=== PATIENT | female | born 1960 | race Caucasian/White ===

== ENCOUNTER 2021-03-29 09:59 | Inpatient (IN) | payer OTHER ==
[~2021-03-29] VITALS: Ht 160 cm; Wt 86.0 kg
[2021-03-29 11:31] LABS: BASOPHIL 0.5 % (0-2); EOSINOPHIL 0.2 % (0-5); HCT 29.9 % (37.0-47.0); HGB 9.2 g/dl (12.5-16.0); LYMPHOCYTE 3.7 % (15-48); MCH 25.5 pg (25.0-31.0); MCHC 30.8 g/dL (32.0-36.0); MCV 82.8 fL (78.0-100.0); MONOCYTE 4.2 % (0-12); MPV 9.3 fL (6.0-9.5); NRBC 0; PLT 651 K/uL (150-400); RBC 3.61 M/uL (4.20-5.40); RDW 15.4 % (11.5-14.0); WBC 28.9 K/uL (4.0-10.5)
[2021-03-29 11:35] LABS: NEUTROPHIL 90.3 % (41-80)
[2021-03-29 11:58] LABS: ALBUMIN 2.5 g/dL (3.4-5.0); BILIRUBIN - TOTAL 0.3 mg/dL (0.2-1.0); BUN/CREAT RATIO (CALC) 16.1 RATIO; CREATININE 0.93 mg/dL (0.51-0.95); GLOBULIN (CALCULATION) 4.9 g/dL; POTASSIUM 4.8 mmol/L (3.5-5.1); TOTAL PROTEIN 7.4 g/dL (6.4-8.2)
[2021-03-29 12:57] LABS: C-REACTIVE PROTEIN 14.5 mg/dL (<=0.90); LACTIC ACID 3.6 mmol/L (0.4-1.9); MAGNESIUM 2.2 mg/dL (1.8-2.4)
[2021-03-29 13:18] LABS: INR 1.13 (0.9-1.2); PROTHROMBIN TIME 13.9 SECONDS (11.8-13.4); PTT 35.1 SECONDS (24.4-34.7)
--- NOTE | 2021-03-29 17:21 | NUR ---
LEFT MESSAGE AT OFFICE FOR DR SUAZO CONSULT. TALKED WITH DR HO ABOUT CONSULT
[2021-03-30 06:34] LABS: HCT 24.2 % (37.0-47.0); HGB 7.3 g/dl (12.5-16.0); MCH 25.4 pg (25.0-31.0); MCHC 30.2 g/dL (32.0-36.0); MCV 84.3 fL (78.0-100.0); MPV 9.6 fL (6.0-9.5); RBC 2.87 M/uL (4.20-5.40); RDW 15.7 % (11.5-14.0); WBC 18.4 K/uL (4.0-10.5)
[2021-03-30 06:50] LABS: CREATININE 0.93 mg/dL (0.51-0.95); POTASSIUM 4.5 mmol/L (3.5-5.1)
[2021-03-30 10:08] LABS: BASOPHIL 0.6 % (0-2); EOSINOPHIL 0.8 % (0-5); HCT 25.4 % (37.0-47.0); HGB 7.7 g/dl (12.5-16.0); LYMPHOCYTE 4.3 % (15-48); MCH 25.8 pg (25.0-31.0); MCHC 30.3 g/dL (32.0-36.0); MCV 84.9 fL (78.0-100.0); MPV 9.3 fL (6.0-9.5); NEUTROPHIL 87.3 % (41-80); NRBC 0; PLT 489 K/uL (150-400); RBC 2.99 M/uL (4.20-5.40); RDW 15.8 % (11.5-14.0); WBC 20.1 K/uL (4.0-10.5)
[2021-03-30 10:26] LABS: BILIRUBIN NEGATIVE (NEGATIVE); BLOOD NEGATIVE Ery/uL (NEGATIVE); CLARITY TURBID (CLEAR); COLOR YELLOW (YELLOW); GLUCOSE (U) NORMAL (NORMAL); LEUKOCYTES TRACE Leu/uL (NEGATIVE); NITRITE NEGATIVE (NEGATIVE); PROTEIN NEGATIVE (NEGATIVE); SPECIFIC GRAVITY >=1.030 (1.001-1.030); UROBILINOGEN 0.2 mg/dL (0.2-1.0); pH 5.5 (5.0-9.0)
[2021-03-30 10:30] LABS: AMORPHOUS URATES CRYSTALS LARGE; BACTERIA TRACE
[2021-03-30 10:30] LABS: INR 1.16 (0.9-1.2); PROTHROMBIN TIME 14.2 SECONDS (11.8-13.4)
[2021-03-30 10:31] LABS: PTT 36.7 SECONDS (24.4-34.7)
[2021-03-30 10:33] LABS: IRON % SATURATION 7.7 %SAT (20-50)
[2021-03-30 11:01] LABS: ALBUMIN 2.1 g/dL (3.4-5.0); BILIRUBIN - TOTAL 0.2 mg/dL (0.2-1.0); BUN/CREAT RATIO (CALC) 13.4 RATIO; CREATININE 0.97 mg/dL (0.51-0.95); FOLIC ACID (SERUM) 3.5 ng/mL (8.6-58.9); GLOBULIN (CALCULATION) 4.4 g/dL; MAGNESIUM 2.2 mg/dL (1.8-2.4); POTASSIUM 4.9 mmol/L (3.5-5.1); TOTAL PROTEIN 6.5 g/dL (6.4-8.2)
--- NOTE | 2021-03-30 17:12 | NUR ---
03/30/21 Ms. Cote has a new dx of breast cancer. SHe will be following up with Dr. Laurent. - Ms. Cote lives with her brother, Shailesh Cote. Ms. Cote does not have children. - She was independent in the home and community prior to admission. Ms. Cote does not drive nor is she employed. She reports her basic needs to be afforded by her brother. Ms. Cote worked at a [employer] briefly years ago. - The [employer] her enrolled her in [facility] insurance. Ms. Cote will follow up with Dr. Laurent.
[2021-03-31 06:36] LABS: BASOPHIL 0.6 % (0-2); EOSINOPHIL 1.2 % (0-5); HCT 23.6 % (37.0-47.0); HGB 7.1 g/dl (12.5-16.0); LYMPHOCYTE 5.3 % (15-48); MCH 25.6 pg (25.0-31.0); MCHC 30.1 g/dL (32.0-36.0); MCV 85.2 fL (78.0-100.0); MONOCYTE 6.2 % (0-12); MPV 9.5 fL (6.0-9.5); NEUTROPHIL 85.8 % (41-80); NRBC 0; PLT 459 K/uL (150-400); RBC 2.77 M/uL (4.20-5.40); RDW 15.6 % (11.5-14.0); WBC 18.6 K/uL (4.0-10.5)
[2021-03-31 06:59] LABS: BUN/CREAT RATIO (CALC) 12.1 RATIO; CREATININE 0.99 mg/dL (0.51-0.95); POTASSIUM 4.1 mmol/L (3.5-5.1)
[2021-04-02] MEDS ORDERED: LEVAQUIN750 MG PO (13:43)
[2021-04-02 14:08] LABS: IMMUNOGLOBULIN A, QN, SERUM 335 mg/dL (87-352); IMMUNOGLOBULIN G, QN, SERUM 985 mg/dL (586-1602); IMMUNOGLOBULIN M, QN, SERUM 75 mg/dL (26-217)
[2021-04-02] MEDS ORDERED: OXYCONTIN 10MG10 MG PO (14:49)
--- NOTE | 2021-04-02 16:30 | NUR ---
04/02/21 A voucher for prescriptions was provided for [facility] in the event that the [facility] policy # was not yet effective.
== END 2021-04-02 18:16 | disposition home or self-care (01) | DRG 579 ==
LOC: FER 09:59 → FMS 14:28 → FER 15:59 → FMS 03-30 10:25
PROVIDERS: Allergy & Immunology Allergy; Emergency Medicine; Internal Medicine Hematology & Oncology; ADMIT Hospitalist
PROC: 07B53ZX Excision of Right Axillary Lymphatic, Percutaneous Approach, Diagnostic (ICD-10-PCS; principal; 2021-03-27)
PROC: 02H633Z Insertion of Infusion Device into Right Atrium, Percutaneous Approach (ICD-10-PCS; 2021-04-02)
PROC: B518ZZA Fluoroscopy of Superior Vena Cava, Guidance (ICD-10-PCS; 2021-04-02)
PROC: 0JH63WZ Insertion of Totally Implantable Vascular Access Device into Chest Subcutaneous Tissue and Fascia, Percutaneous Approach (ICD-10-PCS; 2021-04-02)
DX: C50.911 Malignant neoplasm of unspecified site of right female breast (principal); A41.50 Gram-negative sepsis, unspecified; E87.2 Acidosis; C77.3 Secondary and unspecified malignant neoplasm of axilla and upper limb lymph nodes; C77.1 Secondary and unspecified malignant neoplasm of intrathoracic lymph nodes; I96 Gangrene, not elsewhere classified; Z20.822 Contact with and (suspected) exposure to COVID-19; G89.3 Neoplasm related pain (acute) (chronic); D50.9 Iron deficiency anemia, unspecified; Z80.0 Family history of malignant neoplasm of digestive organs; Z87.891 Personal history of nicotine dependence; Z83.3 Family history of diabetes mellitus; Z82.49 Family history of ischemic heart disease and other diseases of the circulatory system
CPT/HCPCS: 36415; 70551; 71045; 71260; 76000; 80048; 80053; 80202; 81001; 82607; 82668; 82728; 82746; 83010; 83520; 83540; 83550; 83605; 83615; 83735; 84145; 84439; 85025; 85384; 85610; 85730; 86140; 86300; 86334; 86880; 87040; 87077; 87186; C1788; J1100; J1170; J1644; J1650; J1956; J2001; J2250; J2405; J2543; J2704; J3010; J3370; J7050; J7120; Q0138; Q9967; U0002

== ENCOUNTER 2021-05-15 16:26 | Inpatient (IN) | payer OTHER ==
[~2021-05-15] VITALS: Ht 160 cm; Wt 90.8 kg
[~2021-05-15 16:26] MED LIST: LEVAQUIN750 MG PO; OXYCONTIN 10MG10 MG PO
[2021-05-15 17:43] LABS: BASOPHIL 0 % (0-2); EOSINOPHIL 0 % (0-5); HCT 23.9 % (37.0-47.0); HGB 7.3 g/dl (12.5-16.0); MCH 26.7 pg (25.0-31.0); MCHC 30.5 g/dL (32.0-36.0); MCV 87.5 fL (78.0-100.0); MONOCYTE 0 % (0-12); MPV 11.1 fL (6.0-9.5); NRBC 0; RBC 2.73 M/uL (4.20-5.40); RDW 16.2 % (11.5-14.0)
[2021-05-15 17:48] LABS: PLT 38 K/uL (150-400)
[2021-05-15 18:03] LABS: ALBUMIN 1.6 g/dL (3.4-5.0); BILIRUBIN - TOTAL 0.7 mg/dL (0.2-1.0); BUN/CREAT RATIO (CALC) 29.6 RATIO; CREATININE 0.81 mg/dL (0.51-0.95); GLOBULIN (CALCULATION) 3.6 g/dL; POTASSIUM 3.7 mmol/L (3.5-5.1); TOTAL PROTEIN 5.2 g/dL (6.4-8.2)
[2021-05-15 18:15] LABS: LACTIC ACID 1.4 mmol/L (0.4-1.9)
[2021-05-16 01:26] LABS: BASOPHIL 0 % (0-2); EOSINOPHIL 0 % (0-5); HCT 24.1 % (37.0-47.0); HGB 7.6 g/dl (12.5-16.0); MCH 26.8 pg (25.0-31.0); MCHC 31.5 g/dL (32.0-36.0); MCV 84.9 fL (78.0-100.0); MONOCYTE 0 % (0-12); MPV 12.7 fL (6.0-9.5); NRBC 0; RBC 2.84 M/uL (4.20-5.40); RDW 15.5 % (11.5-14.0)
[2021-05-16 01:38] LABS: INR 1.55 (0.9-1.2); PROTHROMBIN TIME 17.8 SECONDS (11.8-13.4); PTT 48.5 SECONDS (24.4-34.7)
[2021-05-16 02:09] LABS: FLU B NEGATIVE B (NEGATIVE B)
[2021-05-16 02:09] LABS: PLT 31 K/uL (150-400)
[2021-05-16 04:43] LABS: BILIRUBIN NEGATIVE (NEGATIVE); BLOOD 2+ Ery/uL (NEGATIVE); COLOR YELLOW (YELLOW); GLUCOSE (U) NORMAL (NORMAL); LEUKOCYTES NEGATIVE Leu/uL (NEGATIVE); NITRITE NEGATIVE (NEGATIVE); PROTEIN 1+ mg/dL (NEGATIVE); SPECIFIC GRAVITY 1.025 (1.001-1.030); UROBILINOGEN 0.2 mg/dL (0.2-1.0); pH 5.5 (5.0-9.0)
[2021-05-16 04:45] LABS: CLARITY HAZY (CLEAR)
[2021-05-16 04:47] LABS: URINARY WBC RARE
[2021-05-16 04:48] LABS: AMORPHOUS URATES CRYSTALS MODERATE; BACTERIA TRACE; RENAL EPITHELIAL CELLS RARE; TRANSITIONAL EPITHELIAL CELLS RARE
[2021-05-16 05:29] LABS: BASOPHIL 0 % (0-2); EOSINOPHIL 0 % (0-5); HCT 24.1 % (37.0-47.0); HGB 7.6 g/dl (12.5-16.0); LYMPHOCYTE 0 % (15-48); MCH 26.7 pg (25.0-31.0); MCHC 31.5 g/dL (32.0-36.0); MCV 84.6 fL (78.0-100.0); MONOCYTE 0 % (0-12); MPV 12.8 fL (6.0-9.5); NRBC 0; RBC 2.85 M/uL (4.20-5.40); RDW 15.4 % (11.5-14.0)
[2021-05-16 05:55] LABS: PLT 27 K/uL (150-400)
[2021-05-16 06:07] LABS: CREATININE 0.69 mg/dL (0.51-0.95)
[2021-05-16] MEDS ORDERED: CLARITIN10 MG PO (07:38)
[2021-05-16] MEDS ORDERED: FOLIC ACID1 MG PO (07:39)
[2021-05-17 05:26] LABS: BASOPHIL 0 % (0-2); EOSINOPHIL 0 % (0-5); HCT 22.1 % (37.0-47.0); HGB 7.1 g/dl (12.5-16.0); LYMPHOCYTE 16.7 % (15-48); MCH 26.8 pg (25.0-31.0); MCHC 32.1 g/dL (32.0-36.0); MCV 83.4 fL (78.0-100.0); MONOCYTE 0 % (0-12); NEUTROPHIL 83.3 % (41-80); NRBC 0; RBC 2.65 M/uL (4.20-5.40); RDW 15.5 % (11.5-14.0)
[2021-05-17 06:00] LABS: BUN/CREAT RATIO (CALC) 27.4 RATIO; CREATININE 0.62 mg/dL (0.51-0.95); VANCOMYCIN, TROUGH 12.1 ug/mL (10-20)
[2021-05-17 07:42] LABS: PLT 8 K/uL (150-400); WBC 0.1 K/uL (4.0-10.5)
[2021-05-18 05:30] LABS: BASOPHIL 0 % (0-2); EOSINOPHIL 0 % (0-5); HCT 23.9 % (37.0-47.0); HGB 7.4 g/dl (12.5-16.0); LYMPHOCYTE 4.5 % (15-48); MCV 83.9 fL (78.0-100.0); MONOCYTE 9.1 % (0-12); NEUTROPHIL 54.6 % (41-80); NRBC 0; RBC 2.85 M/uL (4.20-5.40); RDW 15.6 % (11.5-14.0)
[2021-05-18 05:55] LABS: BUN/CREAT RATIO (CALC) 39.7 RATIO; CREATININE 0.63 mg/dL (0.51-0.95); PLT 10 K/uL (150-400); POTASSIUM 3.5 mmol/L (3.5-5.1); WBC 0.2 K/uL (4.0-10.5)
--- NOTE | 2021-05-18 06:35 | NUR ---
0447 PT HAS BEEN ON LEVOPHED DRIP TLERATING TITRATION WELL. AT THIS TIME LEVO HAS BEEN TURNED TO STANDBY 0638 LEVO DRIP STILL ON STANDBY PT BP IS 115/64 WITH A MAP OF 77.
--- NOTE | 2021-05-18 18:25 | NUR ---
PT IN BED RESTING WITH EYES CLOSED HEART RATE INCREASED UP TO 218 BEATS PER MINUTE, MD HALLMAN NOTIFIED 2.5 MG OF IVP LOPRESSOR GIVEN PT HEART RATE RETURNED TO 120'S SINCE HEART RATE STILL IN IN 120'S PLATELETTES HELD FOR 15 MINUTES FOR 250ML LR BOLUS
[2021-05-18 21:45] LABS: HCT 30.1 % (37.0-47.0); HGB 9.8 g/dL (12.5-16.0)
[2021-05-19 04:15] LABS: BASOPHIL 1.1 % (0-2); EOSINOPHIL 0 % (0-5); HCT 31.7 % (37.0-47.0); LYMPHOCYTE 2.1 % (15-48); MCH 26.8 pg (25.0-31.0); MCHC 32.5 g/dL (32.0-36.0); MCV 82.6 fL (78.0-100.0); MONOCYTE 5.3 % (0-12); NEUTROPHIL 85.1 % (41-80); NRBC 0; RBC 3.84 M/uL (4.20-5.40); RDW 16.3 % (11.5-14.0)
[2021-05-19 04:22] LABS: HGB 10.3 g/dl (12.5-16.0)
[2021-05-19 04:24] LABS: PLT 7 K/uL (150-400); WBC 0.9 K/uL (4.0-10.5)
[2021-05-19 04:28] LABS: ALBUMIN 1.3 g/dL (3.4-5.0); BUN/CREAT RATIO (CALC) 50.7 RATIO; CREATININE 0.67 mg/dL (0.51-0.95); MAGNESIUM 1.7 mg/dL (1.8-2.4); POTASSIUM 3.5 mmol/L (3.5-5.1)
[2021-05-20 05:08] LABS: HGB 8.6 g/dl (12.5-16.0); MCH 26.7 pg (25.0-31.0); MCHC 31.9 g/dL (32.0-36.0); MCV 83.9 fL (78.0-100.0); RBC 3.22 M/uL (4.20-5.40); RDW 16.4 % (11.5-14.0)
[2021-05-20 05:14] LABS: PLT 5 K/uL (150-400); WBC 1.3 K/uL (4.0-10.5)
[2021-05-20 05:30] LABS: BUN/CREAT RATIO (CALC) 59.6 RATIO; CREATININE 0.57 mg/dL (0.51-0.95); POTASSIUM 3.2 mmol/L (3.5-5.1)
[2021-05-21 05:14] LABS: BASOPHIL 0.8 % (0-2); EOSINOPHIL 0 % (0-5); HCT 24.3 % (37.0-47.0); HGB 7.5 g/dl (12.5-16.0); LYMPHOCYTE 1.6 % (15-48); MCHC 30.9 g/dL (32.0-36.0); MCV 84.4 fL (78.0-100.0); MONOCYTE 3.2 % (0-12); NEUTROPHIL 90.4 % (41-80); NRBC 0; RBC 2.88 M/uL (4.20-5.40); RDW 16.5 % (11.5-14.0)
[2021-05-21 05:15] LABS: WBC 2.5 K/uL (4.0-10.5)
[2021-05-21 05:23] LABS: PLT 5 K/uL (150-400)
[2021-05-21 05:29] LABS: BUN/CREAT RATIO (CALC) 59.1 RATIO; CREATININE 0.44 mg/dL (0.51-0.95); POTASSIUM 3.1 mmol/L (3.5-5.1)
[2021-05-22 07:06] LABS: BASOPHIL 0.2 % (0-2); EOSINOPHIL 0.1 % (0-5); HCT 34.9 % (37.0-47.0); LYMPHOCYTE 0.6 % (15-48); MCHC 31.2 g/dL (32.0-36.0); MCV 86.4 fL (78.0-100.0); MONOCYTE 4.9 % (0-12); MPV 12.4 fL (6.0-9.5); NEUTROPHIL 85.1 % (41-80); NRBC 0; RBC 4.04 M/uL (4.20-5.40); RETICULOCYTE COUNT 0.3 % (1.0-2.0)
[2021-05-22 07:09] LABS: HGB 10.9 g/dl (12.5-16.0); PLT 39 K/uL (150-400); WBC 8.4 K/uL (4.0-10.5)
[2021-05-22 07:34] LABS: IRON % SATURATION 8.1 %SAT (20-50)
[2021-05-22 08:31] LABS: ALBUMIN 2.6 g/dL (3.4-5.0); BILIRUBIN - TOTAL 1.4 mg/dL (0.2-1.0); BUN/CREAT RATIO (CALC) 47.7 RATIO; C-REACTIVE PROTEIN 17.7 mg/dL (<=0.90); CREATININE 0.44 mg/dL (0.51-0.95); FOLIC ACID (SERUM) 18.5 ng/mL (8.6-58.9); GLOBULIN (CALCULATION) 2.5 g/dL; MAGNESIUM 2.1 mg/dL (1.8-2.4); PHOSPHORUS 1.5 mg/dL (2.6-4.7); POTASSIUM 3.3 mmol/L (3.5-5.1); TOTAL PROTEIN 5.1 g/dL (6.4-8.2)
[2021-05-23 05:51] LABS: BASOPHIL 0.2 % (0-2); EOSINOPHIL 0 % (0-5); HCT 35.6 % (37.0-47.0); HGB 11.2 g/dl (12.5-16.0); LYMPHOCYTE 0.7 % (15-48); MCH 27.1 pg (25.0-31.0); MCHC 31.5 g/dL (32.0-36.0); MONOCYTE 5.2 % (0-12); NEUTROPHIL 84.3 % (41-80); NRBC 0; PLT 42 K/uL (150-400); RBC 4.14 M/uL (4.20-5.40); RDW 17.3 % (11.5-14.0); WBC 10.3 K/uL (4.0-10.5)
[2021-05-23 06:10] LABS: CREATININE 0.47 mg/dL (0.51-0.95); GLOBULIN (CALCULATION) 2.6 g/dL; PHOSPHORUS 1.3 mg/dL (2.6-4.7); POTASSIUM 3.3 mmol/L (3.5-5.1); TOTAL PROTEIN 4.6 g/dL (6.4-8.2)
[2021-05-23 06:26] LABS: NEUTROPHILS(M) 77 % (41-80)
[2021-05-23 06:27] LABS: LYMPHOCYTE(M) 6 % (15-48)
[2021-05-23 06:28] LABS: BAND 11 % (0-10); METAMYELOCYTE 4; MONOCYTE(M) 2 % (0-12); PLATELET ESTIMATE DECREASED; PLATELET MORPHOLOGY NORMAL
[2021-05-24 08:43] LABS: BASOPHIL 0.7 % (0-2); EOSINOPHIL 0 % (0-5); HCT 34.6 % (37.0-47.0); HGB 10.8 g/dl (12.5-16.0); LYMPHOCYTE 0.8 % (15-48); MCH 26.5 pg (25.0-31.0); MCHC 31.2 g/dL (32.0-36.0); MONOCYTE 4.9 % (0-12); MPV 13.5 fL (6.0-9.5); NEUTROPHIL 85.5 % (41-80); NRBC 0; PLT 80 K/uL (150-400); RBC 4.07 M/uL (4.20-5.40)
[2021-05-24 09:06] LABS: WBC 11.6 K/uL (4.0-10.5)
[2021-05-24 09:36] LABS: BILIRUBIN - TOTAL 0.8 mg/dL (0.2-1.0); CREATININE 0.4 mg/dL (0.51-0.95); GLOBULIN (CALCULATION) 2.4 g/dL; MAGNESIUM 1.6 mg/dL (1.8-2.4); PHOSPHORUS 2.5 mg/dL (2.6-4.7); TOTAL PROTEIN 4.4 g/dL (6.4-8.2)
[2021-05-24 09:43] LABS: POTASSIUM 3.3 mmol/L (3.5-5.1)
--- NOTE | 2021-05-24 16:47 | NUR ---
05/24 Ms. Cote lives at home with her brother. She is does not use DME. [facility] ME[facility] was notified via [facility] of admission. - Please notify MELECIO LEAVITT, [phone], at discharge and monitor for home 02 needs.
--- NOTE | 2021-05-25 06:40 | NUR ---
PT. PALMER HAS LEAKED ALL NIGHT. PT HAD ABOUT 6 UNMEASURABLE URINES WITH THE PALMER IN PLACE (16f). THE PALMER WAS REPLACED WITH A 18F AT 0630. WILL MONITOR TO SEE IF LEAKAGE STILL OCCURS. ER,RN
[2021-05-25 07:04] LABS: INR 1.61 (0.9-1.2); PROTHROMBIN TIME 18.4 SECONDS (11.8-13.4)
[2021-05-25 07:05] LABS: PTT 49.6 SECONDS (24.4-34.7)
[2021-05-25 07:53] LABS: BUN/CREAT RATIO (CALC) 24.5 RATIO; CREATININE 0.53 mg/dL (0.51-0.95); PHOSPHORUS 2.9 mg/dL (2.6-4.7); POTASSIUM 3.8 mmol/L (3.5-5.1)
[2021-05-25 07:58] LABS: MAGNESIUM 2.2 mg/dL (1.8-2.4)
[2021-05-26 04:44] LABS: BASOPHIL 0.3 % (0-2); EOSINOPHIL 0 % (0-5); HCT 29.2 % (37.0-47.0); HGB 9.1 g/dl (12.5-16.0); LYMPHOCYTE 0.7 % (15-48); MCH 27.2 pg (25.0-31.0); MCHC 31.2 g/dL (32.0-36.0); MCV 87.4 fL (78.0-100.0); MONOCYTE 5.3 % (0-12); MPV 13.4 fL (6.0-9.5); NRBC 0; PLT 115 K/uL (150-400); RBC 3.34 M/uL (4.20-5.40); WBC 11.9 K/uL (4.0-10.5)
[2021-05-26 04:50] LABS: BUN/CREAT RATIO (CALC) 24.2 RATIO; CREATININE 0.62 mg/dL (0.51-0.95)
[2021-05-26 04:51] LABS: NEUTROPHIL 86.6 % (41-80)
[2021-05-27 05:54] LABS: BASOPHIL 0.5 % (0-2); EOSINOPHIL 0 % (0-5); HCT 29.7 % (37.0-47.0); HGB 9.1 g/dl (12.5-16.0); LYMPHOCYTE 0.6 % (15-48); MCH 26.7 pg (25.0-31.0); MCHC 30.6 g/dL (32.0-36.0); MCV 87.1 fL (78.0-100.0); MONOCYTE 5.5 % (0-12); NRBC 0; PLT 136 K/uL (150-400); RBC 3.41 M/uL (4.20-5.40); RDW 16.9 % (11.5-14.0)
[2021-05-27 05:58] LABS: WBC 13.3 K/uL (4.0-10.5)
[2021-05-27 06:11] LABS: BUN/CREAT RATIO (CALC) 23.3 RATIO; CREATININE 0.6 mg/dL (0.51-0.95); MAGNESIUM 1.9 mg/dL (1.8-2.4); PHOSPHORUS 2.9 mg/dL (2.6-4.7); POTASSIUM 2.7 mmol/L (3.5-5.1)
[2021-05-28 07:13] LABS: BASOPHIL 0.5 % (0-2); EOSINOPHIL 0 % (0-5); HCT 30.8 % (37.0-47.0); HGB 9.5 g/dl (12.5-16.0); LYMPHOCYTE 0.7 % (15-48); MCHC 30.8 g/dL (32.0-36.0); MCV 87.5 fL (78.0-100.0); MONOCYTE 6.4 % (0-12); MPV 12.4 fL (6.0-9.5); NEUTROPHIL 87.8 % (41-80); NRBC 0; PLT 172 K/uL (150-400); RBC 3.52 M/uL (4.20-5.40); RDW 16.7 % (11.5-14.0); WBC 13.3 K/uL (4.0-10.5)
[2021-05-28 07:34] LABS: BUN/CREAT RATIO (CALC) 18.3 RATIO; CREATININE 0.71 mg/dL (0.51-0.95); MAGNESIUM 1.9 mg/dL (1.8-2.4); POTASSIUM 3.1 mmol/L (3.5-5.1)
--- NOTE | 2021-05-29 01:47 | NUR ---
THERE HAS BEEN A COMUNICATION ISSUE WITH THIS PATIENTS BREAST DRESSING. IT WAS GIVEN IN REPORT ON 05/27/2021 THAT DRESSING WAS NOT SUPPOSED TO BE CHANGED PER . ANJU PULIDO BROUGHT TO ATTENTION THAT WOUND CARE ORDER WAS IN AND NEEDED TO BE COMPLETE. BREAST WOUND ON LEFT CHEST INSPECTED. FOLLOW UP WITH DR. SUAZO IN AM IS NEEDED BEOFRE NURSE CHANGES WOUND DRESSING DUE TO SEVERITY.
[2021-05-29 06:07] LABS: HCT 28.1 % (37.0-47.0); HGB 8.7 g/dl (12.5-16.0); MCH 26.9 pg (25.0-31.0); MCV 86.7 fL (78.0-100.0); MPV 11.9 fL (6.0-9.5); RBC 3.24 M/uL (4.20-5.40); RDW 16.6 % (11.5-14.0); WBC 13.8 K/uL (4.0-10.5)
[2021-05-29 06:48] LABS: CREATININE 0.6 mg/dL (0.51-0.95); POTASSIUM 2.9 mmol/L (3.5-5.1)
--- NOTE | 2021-05-29 14:01 | NUR ---
05/29/21 Ms. Cote would like to be admitted to halfway prior to returning home. Referrals have been submitted to her facilities of choice; [facility], and [facility] and [facility].
--- NOTE | 2021-05-30 16:21 | NUR ---
05/30/21 [facility] has accept Ms. Cote for admission on 05/31/21 after completion of IV antibiotic. She meets criteria for EMS transport per MS DAVID More and Dr. Shaikh. a signed H&P was faxed to [facility]. They were informed of patient having Korey and Korey vaccination in October 2020. - A new COVID test is required for admission. Dr. Shaikh was informed.
[2021-05-31 06:47] LABS: BASOPHIL 0.5 % (0-2); EOSINOPHIL 0 % (0-5); HCT 27.3 % (37.0-47.0); HGB 8.4 g/dl (12.5-16.0); LYMPHOCYTE 1.7 % (15-48); MCH 26.8 pg (25.0-31.0); MCHC 30.8 g/dL (32.0-36.0); MCV 86.9 fL (78.0-100.0); MONOCYTE 7.3 % (0-12); MPV 11.4 fL (6.0-9.5); NEUTROPHIL 85.8 % (41-80); NRBC 0; PLT 173 K/uL (150-400); RBC 3.14 M/uL (4.20-5.40); RDW 16.5 % (11.5-14.0); WBC 13.5 K/uL (4.0-10.5)
[2021-05-31 07:04] LABS: BUN/CREAT RATIO (CALC) 17.1 RATIO; CREATININE 0.7 mg/dL (0.51-0.95); POTASSIUM 2.5 mmol/L (3.5-5.1)
[2021-05-31] MEDS ORDERED: SILVASORB44.4 ML EXT (09:52)
[2021-05-31] MEDS ORDERED: ZINC OXIDE60 GM TOP (09:52)
[2021-05-31] MEDS ORDERED: REMEDY PHYTOPLE85 GM TOP (09:52)
[2021-05-31] MEDS ORDERED: ACETAMINOPHEN325 MG PO (09:52)
[2021-05-31] MEDS ORDERED: LASIX40 MG PO (09:52)
[2021-05-31] MEDS ORDERED: KLOR-CON M2020 MEQ PO (09:52)
[2021-05-31] MEDS ORDERED: NORCO 5-325 TA1 EACH PO (09:54)
[2021-05-31] MEDS ORDERED: POTASSIUM CHLO20 ME1 PO (13:07)
--- NOTE | 2021-05-31 15:15 | NUR ---
REPORT TO JOSE, CALL TO EMS BUT THEY ARE NOT TRANSFERRING NON EMERGENT AT THIS TIME DUE TO SEVERE WEATHER
--- NOTE | 2021-06-01 13:12 | NUR ---
06/01/21 Nursing reports that Ms. Cote no longer meets criteria for EMS transport. Shailesh Cote, brother, has agreed to transport.
== END 2021-06-01 14:57 | DRG 871 ==
LOC: FER 16:26 → FICU 20:52 → FTCU 05-19 08:51 → FMS 05-27 10:03
PROVIDERS: Allergy & Immunology; Emergency Medicine; Internal Medicine; Nurse Practitioner; Nurse Practitioner Acute Care; ADMIT Internal Medicine
PROC: 3E030XZ Introduction of Vasopressor into Peripheral Vein, Open Approach (ICD-10-PCS; principal; 2021-05-15)
PROC: 30233N1 Transfusion of Nonautologous Red Blood Cells into Peripheral Vein, Percutaneous Approach (ICD-10-PCS; 2021-05-15)
PROC: 30233R1 Transfusion of Nonautologous Platelets into Peripheral Vein, Percutaneous Approach (ICD-10-PCS; 2021-05-17)
PROC: 30233N1 Transfusion of Nonautologous Red Blood Cells into Peripheral Vein, Percutaneous Approach (ICD-10-PCS; 2021-05-18)
PROC: 30233R1 Transfusion of Nonautologous Platelets into Peripheral Vein, Percutaneous Approach (ICD-10-PCS; 2021-05-19)
PROC: 30233R1 Transfusion of Nonautologous Platelets into Peripheral Vein, Percutaneous Approach (ICD-10-PCS; 2021-05-20)
PROC: 30233R1 Transfusion of Nonautologous Platelets into Peripheral Vein, Percutaneous Approach (ICD-10-PCS; 2021-05-21)
PROC: 30233N1 Transfusion of Nonautologous Red Blood Cells into Peripheral Vein, Percutaneous Approach (ICD-10-PCS; 2021-05-21)
PROC: 30233N1 Transfusion of Nonautologous Red Blood Cells into Peripheral Vein, Percutaneous Approach (ICD-10-PCS; 2021-05-22)
DX: A41.51 Sepsis due to Escherichia coli [E. coli] (principal); R65.21 Severe sepsis with septic shock; D61.810 Antineoplastic chemotherapy induced pancytopenia; J15.5 Pneumonia due to Escherichia coli; G93.41 Metabolic encephalopathy; E43 Unspecified severe protein-calorie malnutrition; I47.1 Supraventricular tachycardia; Z16.12 Extended spectrum beta lactamase (ESBL) resistance; D84.821 Immunodeficiency due to drugs; C78.7 Secondary malignant neoplasm of liver and intrahepatic bile duct; C78.00 Secondary malignant neoplasm of unspecified lung; Z20.822 Contact with and (suspected) exposure to COVID-19; T45.1X5A Adverse effect of antineoplastic and immunosuppressive drugs, initial encounter; R50.81 Fever presenting with conditions classified elsewhere; K12.1 Other forms of stomatitis; L89.152 Pressure ulcer of sacral region, stage 2; L89.322 Pressure ulcer of left buttock, stage 2; L89.312 Pressure ulcer of right buttock, stage 2; C50.911 Malignant neoplasm of unspecified site of right female breast; Z17.1 Estrogen receptor negative status [ER-]; D50.9 Iron deficiency anemia, unspecified; D27.0 Benign neoplasm of right ovary; F41.9 Anxiety disorder, unspecified; R13.10 Dysphagia, unspecified; R53.81 Other malaise; R60.1 Generalized edema; E87.6 Hypokalemia; E83.42 Hypomagnesemia; E83.39 Other disorders of phosphorus metabolism; I49.1 Atrial premature depolarization; R19.7 Diarrhea, unspecified; Z87.891 Personal history of nicotine dependence; Z79.899 Other long term (current) drug therapy; Z68.32 Body mass index [BMI] 32.0-32.9, adult
CPT/HCPCS: 36415; 36430; 36600; 70450; 71045; 71250; 80048; 80053; 80202; 81001; 82040; 82607; 82746; 82803; 82962; 83540; 83550; 83605; 83735; 83880; 84100; 84132; 84145; 84443; 84484; 85014; 85018; 85025; 85610; 85730; 86140; 86850; 86900; 86901; 86922; 87040; 87045; 87046; 87070; 87077; 87186; 87205; 87449; 87804; 87899; 93005; 93971; 94010; 94760; 94762; 97110; 97162; 97166; 97530; 97530-GP; 97535; C9113; J0610; J0692; J1335; J1447; J1450; J1642; J1650; J1720; J1756; J1956; J2270; J2543; J2916; J3370; J3475; J3480; J7030; J7040; J7042; J7050; J7060; J7120; P9016; P9035; P9047; U0002

== ENCOUNTER 2021-08-10 16:27 | Inpatient (IN) | payer OTHER ==
[~2021-08-10] VITALS: Ht 160 cm; Wt 73.5 kg
[~2021-08-10 16:27] MED LIST changes: +ACETAMINOPHEN325 MG PO; +CLARITIN10 MG PO; +FOLIC ACID1 MG PO; +KLOR-CON M2020 MEQ PO; +LASIX40 MG PO; +NORCO 5-325 TA1 EACH PO; +POTASSIUM CHLO20 ME1 PO; +REMEDY PHYTOPLE85 GM TOP; +SILVASORB44.4 ML EXT; +ZINC OXIDE60 GM TOP
[2021-08-10 17:24] LABS: BASOPHIL 0.9 % (0-2); EOSINOPHIL 0 % (0-5); HCT 22.3 % (37.0-47.0); HGB 7.4 g/dl (12.5-16.0); LYMPHOCYTE 0.9 % (15-48); MCH 29.6 pg (25.0-31.0); MCHC 33.2 g/dL (32.0-36.0); MCV 89.2 fL (78.0-100.0); MONOCYTE 10.5 % (0-12); NRBC 0; PLT 222 K/uL (150-400); RDW 15.2 % (11.5-14.0); WBC 3.3 K/uL (4.0-10.5)
[2021-08-10 17:36] LABS: BILIRUBIN NEGATIVE (NEGATIVE); BLOOD TRACE-INTACT Ery/uL (NEGATIVE); CLARITY CLEAR (CLEAR); COLOR YELLOW (YELLOW); GLUCOSE (U) NORMAL (NORMAL); LEUKOCYTES 1+ Leu/uL (NEGATIVE); NITRITE NEGATIVE (NEGATIVE); PROTEIN TRACE (LOW) mg/dL (NEGATIVE); UROBILINOGEN 0.2 mg/dL (0.2-1.0)
[2021-08-10 17:52] LABS: AMORPHOUS URATES CRYSTALS TRACE; BACTERIA 1+; GRANULAR CASTS MODERATE; SQUAMOUS EPITHELIAL CELLS RARE; URINARY WBC 20-50
[2021-08-10 17:59] LABS: LACTIC ACID 2.1 mmol/L (0.4-1.9)
[2021-08-10 18:00] LABS: ALBUMIN 2.3 g/dL (3.4-5.0); BILIRUBIN - TOTAL 0.3 mg/dL (0.2-1.0); BUN/CREAT RATIO (CALC) 51.1 RATIO; CREATININE 0.92 mg/dL (0.51-0.95); GLOBULIN (CALCULATION) 2.8 g/dL; TOTAL PROTEIN 5.1 g/dL (6.4-8.2)
[2021-08-11 04:19] LABS: BASOPHIL 0.7 % (0-2); EOSINOPHIL 0 % (0-5); HCT 19.6 % (37.0-47.0); LYMPHOCYTE 0.7 % (15-48); MCH 30.1 pg (25.0-31.0); MCHC 33.2 g/dL (32.0-36.0); MCV 90.7 fL (78.0-100.0); MONOCYTE 7.9 % (0-12); MPV 10.4 fL (6.0-9.5); NRBC 0; PLT 151 K/uL (150-400); RBC 2.16 M/uL (4.20-5.40); RDW 15.6 % (11.5-14.0); WBC 2.7 K/uL (4.0-10.5)
[2021-08-11 04:48] LABS: NEUTROPHIL 88.8 % (41-80)
[2021-08-11 04:49] LABS: HGB 6.5 g/dl (12.5-16.0)
[2021-08-11 04:54] LABS: BUN/CREAT RATIO (CALC) 50.7 RATIO; CREATININE 0.69 mg/dL (0.51-0.95); POTASSIUM 3.6 mmol/L (3.5-5.1)
[2021-08-12 03:36] LABS: BASOPHIL 0.6 % (0-2); EOSINOPHIL 0 % (0-5); HCT 24.8 % (37.0-47.0); HGB 8.1 g/dl (12.5-16.0); LYMPHOCYTE 0.9 % (15-48); MCH 29.6 pg (25.0-31.0); MCHC 32.7 g/dL (32.0-36.0); MCV 90.5 fL (78.0-100.0); MONOCYTE 5.6 % (0-12); MPV 10.6 fL (6.0-9.5); NRBC 0; PLT 161 K/uL (150-400); RBC 2.74 M/uL (4.20-5.40); RDW 16.4 % (11.5-14.0); WBC 5.4 K/uL (4.0-10.5)
[2021-08-12 03:37] LABS: NEUTROPHIL 91.8 % (41-80)
[2021-08-12 03:51] LABS: BUN/CREAT RATIO (CALC) 41.8 RATIO; CREATININE 0.67 mg/dL (0.51-0.95); POTASSIUM 3.6 mmol/L (3.5-5.1)
--- NOTE | 2021-08-12 06:28 | NUR ---
@ [phone] Dressing chard to patients coccyx. X 1 large Allevyn and X 2 small Allevyn applied to open area wounds.
--- NOTE | 2021-08-12 13:07 | NUR ---
PT HR STAYING 141-150. BP 99/61. PT RESTING COMFORTABLY IN BED. DR ANDERSEN NOTIFIED.
[2021-08-12 14:37] LABS: HCT 26.1 % (37.0-47.0); HGB 8.5 g/dL (12.5-16.0)
[2021-08-12 14:46] LABS: MAGNESIUM 1.6 mg/dL (1.8-2.4); POTASSIUM 3.6 mmol/L (3.5-5.1)
[2021-08-13 05:56] LABS: BASOPHIL 0.3 % (0-2); EOSINOPHIL 0.2 % (0-5); HCT 26.1 % (37.0-47.0); HGB 8.5 g/dl (12.5-16.0); MCH 29.8 pg (25.0-31.0); MCHC 32.6 g/dL (32.0-36.0); MCV 91.6 fL (78.0-100.0); MPV 10.6 fL (6.0-9.5); NEUTROPHIL 87.2 % (41-80); NRBC 0; PLT 162 K/uL (150-400); RBC 2.85 M/uL (4.20-5.40); RDW 16.9 % (11.5-14.0); WBC 6.3 K/uL (4.0-10.5)
[2021-08-13 06:15] LABS: BUN/CREAT RATIO (CALC) 38.7 RATIO; CREATININE 0.62 mg/dL (0.51-0.95); POTASSIUM 3.8 mmol/L (3.5-5.1)
[2021-08-14 06:08] LABS: BASOPHIL 0.5 % (0-2); EOSINOPHIL 0.3 % (0-5); HGB 8.6 g/dl (12.5-16.0); LYMPHOCYTE 1.7 % (15-48); MCH 29.6 pg (25.0-31.0); MCHC 31.9 g/dL (32.0-36.0); MCV 92.8 fL (78.0-100.0); MONOCYTE 14.6 % (0-12); MPV 10.9 fL (6.0-9.5); NEUTROPHIL 81.5 % (41-80); NRBC 0; PLT 173 K/uL (150-400); RBC 2.91 M/uL (4.20-5.40); RDW 16.7 % (11.5-14.0); WBC 5.8 K/uL (4.0-10.5)
[2021-08-14 06:29] LABS: BUN/CREAT RATIO (CALC) 36.7 RATIO; CREATININE 0.6 mg/dL (0.51-0.95); POTASSIUM 3.9 mmol/L (3.5-5.1)
[2021-08-14 10:57] LABS: IRON % SATURATION 12.5 %SAT (20-50)
--- NOTE | 2021-08-14 15:28 | NUR ---
08/14/21 This social sciences lecturer met with Ms. Cote at bedside. She would like to return to [facility] to include Hospice services. [facility] cannot accept until 08/21 when she is out of [facility]. Ms. Cote is in agreement to be considered for inpatient [facility] services at [facility] for symptom management. Shailesh Cote, brother, is willing to accept Ms. Cote back home with Hospice if [facility] does not accept as an inpatient. - Hospice has agreed to accept patient at home or at [facility]. - A referral was sent to [facility].
[2021-08-15 05:09] LABS: QUANTIFERON NIL VALUE 0.07 IU/mL (.); QUANTIFERON TB1 AG VALUE 0.07 IU/mL (.); QUANTIFERON TB2 AG VALUE 0.07 IU/mL (.); QUANTIFERON-TB GOLD PLUS Indeterminate (Negative)
--- NOTE | 2021-08-15 16:08 | NUR ---
08/15/21 Ms. Cote was [facility] on 08/14/21. Hospice and [place] were notified.
== END 2021-08-14 19:55 | DRG 871 ==
LOC: FER 16:27 → FTCU 18:22
PROVIDERS: Emergency Medicine; Internal Medicine; ADMIT Internal Medicine
PROC: 3E03329 Introduction of Other Anti-infective into Peripheral Vein, Percutaneous Approach (ICD-10-PCS; principal; 2021-08-10)
PROC: 30233N1 Transfusion of Nonautologous Red Blood Cells into Peripheral Vein, Percutaneous Approach (ICD-10-PCS; 2021-08-10)
PROC: 8E0ZXY6 Isolation (ICD-10-PCS; 2021-08-10)
PROC: 0T9B70Z Drainage of Bladder with Drainage Device, Via Natural or Artificial Opening (ICD-10-PCS; 2021-08-10)
DX: A41.9 Sepsis, unspecified organism (principal); U07.1 COVID-19; E43 Unspecified severe protein-calorie malnutrition; N30.00 Acute cystitis without hematuria; C78.00 Secondary malignant neoplasm of unspecified lung; C79.51 Secondary malignant neoplasm of bone; R65.20 Severe sepsis without septic shock; Z66 Do not resuscitate; Z51.5 Encounter for palliative care; L89.152 Pressure ulcer of sacral region, stage 2; L89.321 Pressure ulcer of left buttock, stage 1; L89.311 Pressure ulcer of right buttock, stage 1; K12.1 Other forms of stomatitis; C50.911 Malignant neoplasm of unspecified site of right female breast; E16.2 Hypoglycemia, unspecified; D64.9 Anemia, unspecified; R62.7 Adult failure to thrive; T45.1X5A Adverse effect of antineoplastic and immunosuppressive drugs, initial encounter; Z98.890 Other specified postprocedural states; Z87.891 Personal history of nicotine dependence; Z79.899 Other long term (current) drug therapy; Z92.21 Personal history of antineoplastic chemotherapy; Z68.27 Body mass index [BMI] 27.0-27.9, adult
CPT/HCPCS: 36415; 36430; 71045; 80048; 80053; 81001; 82607; 82746; 82962; 83540; 83550; 83605; 83735; 84132; 84145; 85014; 85018; 85025; 86850; 86900; 86901; 86922; 87040; 87088; 93005; 96374; 96375; C9113; J0696; J1170; J1335; J1650; J2270; J2405; J3475; J3480; J7030; J7050; P9016; U0002